=== PATIENT | male | born 1955 | race Caucasian/White ===

== ENCOUNTER → 2018-01-28 | Outpatient (CLI) | payer OTHER, MEDICARE ==
[~2018-01-28] MED LIST: ALLEGRA 180MG180 MG PO; AMBIEN 5MG TABLE5 MG PO; ASPIRIN 81M81 MG/TA2 PO; GLUCOPHAGE500 MG/TAB PO; LIPITOR 10MG10 MG PO; NORVASC 10MG10 MG PO; TOPROL XL100 MG PO; ZESTORETIC 12.51 TA1 PO
== END ==
LOC: COL.RAD 07:02
DX: N20.0 Calculus of kidney (principal); R31.0 Gross hematuria
CPT/HCPCS: Q9967

== ENCOUNTER 2021-07-29 08:31 | Outpatient (CLI) | payer OTHER, MEDICARE ==
[2021-07-29] VITALS (8 sets, daily range): BP systolic 115–135; BP diastolic 72–91; PULSE 81–89; TEMP 99.1
[2021-07-29] MEDS ORDERED: FARXIGA10 PO (09:37)
[2021-07-29] MEDS ORDERED: NATURE'S BLEND M3 MG PO (09:37)
[2021-07-29] MEDS ORDERED: MASON NATURAL2000 IU PO (09:38)
[2021-07-29] MEDS ORDERED: OMEGA-3 1000 MG1 CAP PO (09:38)
[2021-07-29] MEDS ORDERED: PRIL40 PO (09:39)
[2021-07-29] MEDS ORDERED: CELEBREX 1100 MG/CAP PO (09:39)
== END 2021-07-29 10:45 | disposition home or self-care (01) ==
LOC: EUO 08:31
DX: U07.1 COVID-19 (principal); E11.9 Type 2 diabetes mellitus without complications
CPT/HCPCS: Q0244

== ENCOUNTER → 2024-07-21 | Outpatient (CLI) | payer MEDICARE, BC ==
[~2024-07-21] MED LIST changes: +CELEBREX 1100 MG/CAP PO; +FARXIGA10 PO; +MASON NATURAL2000 IU PO; +NATURE'S BLEND M3 MG PO; +OMEGA-3 1000 MG1 CAP PO; +PRIL40 PO
== END ==
LOC: COL.RAD 07:55
DX: R22.0 Localized swelling, mass and lump, head (principal)